=== PATIENT | male | born 1965 | race Caucasian/White ===

== ENCOUNTER → 2017-12-15 | Outpatient (CLI) | payer BC ==
--- NOTE | 2017-12-15 12:26 | Diagnostic Imaging Report ---
PROCEDURE:X-RAY ABDOMEN - KUB COMPARISON:07/28/17 INDICATIONS:CALCULUS OF KIDNEY FINDINGS: There is a non-obstructed bowel-gas pattern. No signs of pneumoperitoneum. Unchanged 3 mm right upper lobe renal calculus. There are no acute osseous abnormalities. CONCLUSION: Unchanged 3 mm right upper pole renal calculus. Nonobstructive bowel gas pattern. Dictated by: Kyler Trevino M.D. on 12/15/2017 at 12:25 Electronically approved by: Kyler Trevino M.D. on 12/15/2017 at 12:25
== END ==
LOC: RAD 10:57
PROVIDERS: ATTEND Urology
DX: N20.0 Calculus of kidney (principal)
CPT/HCPCS: 74018

== ENCOUNTER → 2018-06-08 | Outpatient (CLI) | payer BC ==
--- NOTE | 2018-06-08 18:03 | Diagnostic Imaging Report ---
Exam: Abdominal film Clinical History: Calculus of kidney Comparison: None. DISCUSSION: Nonobstructive bowel gas pattern. Ill-defined 3 mm radiopaque density projects over the superior aspect of the right renal shadow between the 10th and 11th ribs. No other radiopaque densities project over the genitourinary system. No acute bony abnormalities. IMPRESSION.: 1. Findings likely represent a 3 mm nonobstructing calculus in the superior pole of the right kidney The staff physician below has personally reviewed this exam on the date of dictation. Signed by: Dr. Jose Guadalupe Edouard M.D. on 06/08/2018 5:59 PM
== END ==
LOC: RAD 15:20
PROVIDERS: ATTEND Urology
DX: N20.0 Calculus of kidney (principal)
CPT/HCPCS: 74018

== ENCOUNTER → 2018-12-17 | Outpatient (CLI) | payer BC ==
--- NOTE | 2018-12-17 08:54 | Diagnostic Imaging Report ---
EXAM: ABDOMEN-1VIEW (KUB) DATE: 12/17/2018 8:12 AM INDICATION: Kidney stone COMPARISON: KUB, 06/08/2018 FINDINGS: 2 supine views of the abdomen show a normal distribution of air in the small and large bowel. Again noted is a faint 3 mm calcification, projected lateral to the T12 vertebral body at the upper pole right kidney. This may represent persistent small renal calculus, but may also be related to superimposed bowel content. There is a stable 3 mm calcification left hemipelvis, likely phlebolith. No acute bony abnormality. Lung bases clear. IMPRESSION: 1. Persistent faint 3 mm calcification projected on the upper pole right kidney, possible renal calculus. 2. No bowel dilatation or evidence for bowel obstruction. Signed by: Dr. Eugenio Calderon M.D. on 12/17/2018 8:50 AM
== END ==
LOC: RAD 08:05
PROVIDERS: ATTEND Urology
DX: N20.0 Calculus of kidney (principal)
CPT/HCPCS: 74018

== ENCOUNTER → 2019-04-23 | Outpatient (CLI) | payer BC ==
--- NOTE | 2019-04-23 12:17 | Diagnostic Imaging Report ---
Exam: KUB - 2 views Clinical History: Renal calculi Comparison: CT chest abdomen and pelvis of 04/21/2010 Findings: Nonobstructive bowel gas pattern. No evidence of free intraperitoneal air. 4 mm high density structure overlying the upper pole the right kidney.. No acute bony abnormality. Impression: 4 mm high density structure overlying the upper pole the right kidney may represent renal calculus versus ingested bowel contents. Signed by: Raj Meraz MD on 04/23/2019 12:14 PM
== END ==
LOC: RAD 11:23
PROVIDERS: ATTEND Urology
DX: N20.0 Calculus of kidney (principal)
CPT/HCPCS: 74018

== ENCOUNTER → 2019-08-21 | Outpatient (CLI) | payer BC ==
--- NOTE | 2019-08-21 09:14 | Diagnostic Imaging Report ---
Exam: KUB - 2 views Indication: Renal calculi Comparison: KUB of 06/08/2018 Findings: No radiographically apparent renal calculi. Nonobstructive bowel gas pattern. No free air. Osseous structures appear unremarkable. Phleboliths in the pelvis. Impression: No radiographically apparent renal calculi. Signed by: Raj Meraz MD on 08/21/2019 9:11 AM
== END ==
LOC: RAD 08:27
PROVIDERS: ATTEND Urology
DX: N20.0 Calculus of kidney (principal)
CPT/HCPCS: 74018

== ENCOUNTER → 2019-11-20 | Outpatient (CLI) | payer BC ==
--- NOTE | 2019-11-20 09:15 | Diagnostic Imaging Report ---
EXAM: ABDOMEN-1VIEW (KUB) DATE: 11/20/2019 8:38 AM INDICATION: Calculus of kidney COMPARISON: 04/23/2019 FINDINGS: Bowel gas pattern appears nonobstructive. No free air is appreciated. No radiographically evident renal calculus is appreciated. Suspected phlebolith noted within the pelvis. No other abnormal intra-abdominal calcification is identified. No acute osseous abnormality is identified. IMPRESSION: No radiographically evident renal calculi appreciated. Signed by: Dr. Greyson Alcazar MD on 11/20/2019 9:12 AM
== END ==
LOC: RAD 08:34
PROVIDERS: ATTEND Urology
DX: N20.0 Calculus of kidney (principal)
CPT/HCPCS: 74018

== ENCOUNTER → 2021-04-02 | Outpatient (CLI) | payer BC | LOC: RAD 12:41 | PROVIDERS: ATTEND Urology | DX: N20.0 Calculus of kidney (principal) | CPT/HCPCS: 74018 ==

== ENCOUNTER → 2022-03-28 | Outpatient (CLI) | payer BC | LOC: RAD 09:21 | PROVIDERS: ATTEND Urology | DX: N20.0 Calculus of kidney (principal) | CPT/HCPCS: 74018 ==

== ENCOUNTER → 2023-03-24 | Outpatient (CLI) | payer BC | LOC: RAD 10:41 | PROVIDERS: ATTEND Urology | DX: N20.0 Calculus of kidney (principal) | CPT/HCPCS: 74018 ==